=== PATIENT | female | born 1995 | race Caucasian/White ===

== ENCOUNTER 2024-05-23 16:21 | Emergency (ER) | payer MEDICAID ==
[2024-05-23] MEDS ORDERED: Lidocaine 2% 20 ML MDV INFILT ONE (16:22)
[2024-05-23 16:58] LABS: BASOPHILS ABSOLUTE AUTO 0.1 x10-3/uL (0.0-0.1); BASOPHILS PERCENT AUTO 0.8 % (0.2-1.5); EOSINOPHILS ABSOLUTE AUTO 0.1 x10-3/uL (0.0-0.8); EOSINOPHILS PERCENT AUTO 1.2 % (0.6-8.1); HEMATOCRIT 41.7 % (34.2-48.2); LYMPHOCYTES ABSOLUTE AUTO 1.7 x10-3/uL (1.0-4.4); LYMPHOCYTES PERCENT AUTO 25.9 % (18.4-52.1); MEAN CORPUSCULAR HEMOGLOBIN 30.5 pg (23.9-33.9); MEAN CORPUSCULAR HGB CONC 33.6 g/dL (31.9-34.8); MEAN CORPUSCULAR VOLUME 90.5 fL (76.7-100.5); MEAN PLATELET VOLUME 8.6 fL (7.1-12.4); MONOCYTES ABSOLUTE AUTO 0.4 x10-3/uL (0.3-1.0); MONOCYTES PERCENT AUTO 5.8 % (4.4-15.7); NEUTROPHILS ABSOLUTE AUTO 4.2 x10-3/uL (1.5-6.3); NEUTROPHILS PERCENT AUTO 66.3 % (30.8-76.2); PLATELET COUNT,PLT 283 x10(3)uL (151-488); RED BLOOD CELL COUNT 4.61 x10(6)uL (3.60-5.20); RED CELL DISTRIBUTION WIDTH 13.9 % (12.3-16.5); WHITE BLOOD CELL COUNT,WBC 6.4 x10-3/uL (3.0-10.3)
[2024-05-23 17:00] LABS: BLOOD UREA NITROGEN,BUN 24 mg/dL (7-18); CALCIUM 8.8 mg/dL (8.6-10.2); CARBON DIOXIDE,CO2 30 mmol/L (21-32); CHLORIDE,CL 104 mmol/L (100-110); ESTIMATED GFR 79 mL/min (>60); GLUCOSE RANDOM 89 mg/dL (80-116); POTASSIUM,K 3.9 mmol/L (3.5-5.3); SODIUM,NA 141 mmol/L (135-145)
[2024-05-23 17:06] LABS: A/G RATIO 1.4; ALANINE AMINOTRANSFERASE,ALT 22 U/L (12-36); ALBUMIN 4.3 g/dL (3.5-5.2); ALKALINE PHOSPHATASE 85 IU/L (56-112); ASPARTATE AMNIOTRANSFERASE,AST 12 IU/L (5-25); BILIRUBIN TOTAL 0.2 mg/dL (0.1-1.3); PROTEIN TOTAL,TP 7.4 g/dL (6.0-8.0)
[2024-05-23] MEDS: Sodium Chloride 0.9% 1,000 ML IV ONE (17:18)
[2024-05-23] MEDS: LORazepam 2 MG/ML SDV IVPUSH ONE (17:18)
== END 2024-05-23 18:36 | disposition home or self-care (01) ==
LOC: FB.ED 16:21
DX: E86.0 Dehydration (principal); F41.1 Generalized anxiety disorder
CPT/HCPCS: 10120; 12001; 36415; 80053; 85025; 96361; 96374; 99284; J2060; J7030

== ENCOUNTER 2024-08-06 15:25 | Emergency (ER) | payer MEDICAID | END 2024-08-06 18:00 | disposition home or self-care (01) | LOC: FB.ED 15:25 | DX: S92.351A Displaced fracture of fifth metatarsal bone, right foot, initial encounter for closed fracture (principal); Z88.1 Allergy status to other antibiotic agents; X50.1XXA Overexertion from prolonged static or awkward postures, initial encounter | CPT/HCPCS: 73610-RT; 73630-RT; 99283 ==